=== PATIENT | male | born 2000 | race Caucasian/White ===

== ENCOUNTER 2024-11-03 20:41 | Emergency (ER) | payer BC, SELFPAY ==
[2024-11-03 20:46] VITALS: BP 162/94
--- NOTE | 2024-11-04 00:13 | ED.GENMED ---
History of Present Illness
General
Chief Complaint: Musculo-Skeletal Complaint
Source: patient
Exam Limitations: none
Time Seen by Provider: 11/03/24 21:14
Nursing documentation reviewed up to this point in time: agreed with
History of Present Illness
History of Present Illness:
24-year-old male presents with toe injury. Patient dropped a wooden pallet on his left big toe on Sunday and has had increased bruising and swelling since. Came to the ER for assessment.
Review of Systems
Review of Systems
All Other Systems: ROS reviewed and negative except as documented in HPI and ROS
Skin: Reports other (Toe injury)
Phy Exam
Physical Exam
Physical Exam:
General: Well appearing and non-toxic
HEENT: protecting airway
Neck: appears supple
CV: No evidence of cyanosis
Resp: No accessory muscle use
Abd: Non-distended
Extremities: Patient has some bruising of the left large toe with essentially 100% subungual hematoma
Neuro: Alert
Scores
Heart Failure Risk
Heart Failure Risk Score: Not Applicable
Heart Score for Chest Pain Patients
STEMI patient?: Not applicable
Withdrawal Assessment of Alcohol
Withdrawal Assessment Completed?: Not applicable
Course
Orders/Labs/Results
Orders:
Orders
11/03/24 20:49
Toes 2 Views, Left CR [CR Toe(s) Min 2 Vw Left] Urgent
Comment:
Reason For Exam: pain, injury
Indicate Which Toe:: Great
Vital Signs
Initial and Last Documented VS:
Initial Vital Signs
Temp Pulse Resp BP Pulse Ox
37.1 C 65 16 162/94 99
11/03/24 20:46 11/03/24 20:46 11/03/24 20:46 11/03/24 20:46 11/03/24 20:46
Last Documented Vital Signs
Temp Pulse Resp BP Pulse Ox
37.1 C 65 16 162/94 99
11/03/24 20:46 11/03/24 20:46 11/03/24 20:46 11/03/24 20:46 11/03/24 20:46
Procedures
Nail Trepanation/Felon
Method of Drainage: nail cauterized
Additional information:
Nail trephinated with bovie at bedside and frankly blood drainage expressed with symptomatic improvement
MDM/Problems Addressed
Differential Diagnosis Includes:
Toe fracture, subungual hematoma
MDM/Problems Addressed:
24-year-old male presents with left big toe injury as described above. X-ray shows no fracture. He has a large subungual hematoma. Nail was trephinated and something hematoma was drained with improvement in swelling and symptoms. Given
instructions for supportive care. Stable for discharge.
Acute Exacerbation and/or Progression of Chronic Illness: HTN
*Radiology
Radiology exam reviewed: preliminary read by ED provider (LYNDA) and radiology read reviewed
*Pulse Oximetry
Patient hypoxic: no
*Critical Care Note
Total Time (30-74mins, 75-104mins- exclusive of procedures): Not Applicable
Data Reviewed
Source: patient
ED Attending Note
-
Portions of this chart may have been created with voice recognition software.� Occasional wrong word or��sound alike� substitutions may have occurred due to the inherent limitations of voice recognition software.
Discharge Plan
Departure
Patient Disposition: Home (Routine Discharge)
Date of Disposition: 11/04/24
Time of Disposition: 00:12
Patient with high blood pressure during this ER visit?: No
Discharge Problem:
Subungual hematoma of great toe
Instructions: Bruising Under the Nail, Common toe injuries
Prescriptions:
No Action
cetirizine [Zyrtec] 10 mg Tablet
10 mg PO DAILY PRN (Reason: allergies)
Referrals:
Tc Kulkarni MD [Family Provider] - Follow up in 5-7 days
Activity Restrictions/Additional Instructions:
Thank you for visiting the Emergency Department at [facility].
1. Please schedule a follow up appointment as directed. Call first thing tomorrow morning to make an appointment.
2. If indicated, please take your medications as instructed and indicated on discharge paperwork.
3. If any of your symptoms do not improve, or persist, or become more severe within 6-12 hours, please return to the emergency department for further care.
4. Please return to the emergency department if you develop a headache, neck pain/stiffness, fever greater than 100.4F, chest pain, shortness of breath, persistent nausea, vomiting, slurred speech, difficulty walking, numbness/tingling, weakness,
signs of infection or any other symptoms that are worrisome to you.
Please call [phone] if you have any questions.
Interventions
Interventions:
*General Assessment Last Done: 11/03/24 22:48
*Neglect/Abuse Screening Last Done: 11/03/24 22:48
*ED- Fall Risk Assessment Last Done: 11/03/24 22:48
*ED COVID-19 Vaccine History Last Done: 11/03/24 22:48
ED-Musculoskeletal Assessment Last Done: 11/03/24 22:48
Discharge Date and Time
Print Language: [id number]
== END 2024-11-04 00:20 | disposition home or self-care (01) ==
LOC: EMR 20:41
PROVIDERS: EMERGENCY PHYSICIAN Emergency Medicine; FAMILY PHYSICIAN Family Medicine
DX: S90.212A Contusion of left great toe with damage to nail, initial encounter (principal); W20.8XXA Other cause of strike by thrown, projected or falling object, initial encounter
CPT/HCPCS: 11740; 99283; 73660